=== PATIENT | female | born 1985 | race African-American/Black ===

== ENCOUNTER 2019-08-29 20:04 | Emergency (ER) | payer BC ==
[~2019-08-29] VITALS: Ht 154.9 cm; Wt 79.5 kg
[2019-08-29 20:17] VITALS: Ht 154.9 cm; Wt 79.5 kg
[2019-08-29] MEDS ORDERED: LISINOPRIL-HCT1 EAC4 PO (20:20)
[2019-08-29 21:03] LABS: BASOPHILS 0.4 % (0-2); EOSINOPHILS 2.6 % (0-7); HEMATOCRIT 39.8 % (36.0-48.0); HEMOGLOBIN 12.7 g/dL (12-16); IMMATURE GRANULOCYTES 0.2 % (0-5); LYMPHOCYTES 18.6 % (15-50); MCH 30.5 pg (26.0-34.0); MCHC 31.9 g/dL (31.0-37.0); MCV 95.7 fL (80.0-100.0); MEAN PLATELET VOLUME 11.1 fL (7.4-10.4); MONOCYTES 3.8 % (2-11); NEUTROPHILS 74.4 % (40-80); PLATELET COUNT 292 10x3/uL (130-400); RBC 4.16 10x6/uL (4.00-5.40); RDW 13.8 % (11.5-14.5); WBC 11.4 10x3/uL (4.8-10.8)
[2019-08-29 21:22] LABS: ALBUMIN 3.9 g/dL (3.4-5.0); ALKALINE PHOSPHATASE 81 U/L (46-116); ALT (SGPT) 22 U/L (10-68); BILIRUBIN - TOTAL 0.27 mg/dL (0.2-1.3); CALC OSMOLALITY 281 mosm/kg (275-300); CALCIUM 8.5 mg/dL (8.5-10.1); CARBON DIOXIDE 25.2 mmol/L (21.0-32.0); CHLORIDE - SERUM 105 mmol/L (98-107); GLUCOSE 114 mg/dL (74-106); POTASSIUM - SERUM 3.5 mmol/L (3.5-5.1); PROTEIN - SERUM 7.4 g/dL (6.4-8.2); SODIUM 141 mmol/L (136-145); UREA NITROGEN 12 mg/dL (7-18); eGFR NON AFRICAN AMERICAN 66 mL/min (90-120)
[2019-08-29 21:44] LABS: CREATINE KINASE 241 UL (21-215); TROPONIN-I < 0.017 ng/mL (0.000-0.060)
[2019-08-29 21:45] LABS: CKMB 2.2 U/L (0.0-3.6)
[2019-08-29 22:25] VITALS: BP 160/104
== END 2019-08-29 22:26 | disposition home or self-care (01) ==
LOC: D.ER 20:04
PROVIDERS: Family Medicine
DX: I10 Essential (primary) hypertension (principal); R51 Headache; R07.9 Chest pain, unspecified; Z91.14 Patient's other noncompliance with medication regimen